=== PATIENT | female | born 1965 | race Caucasian/White ===

== ENCOUNTER → 2016-05-05 | Outpatient (CLI) | payer OTHER ==
--- NOTE | 2016-05-05 17:40 | XR ---
EXAMINATION TYPE: XR Hip Complete RT DATE OF EXAM: 05/05/2016 5:26 PM COMPARISON: NONE HISTORY: Hip pain TECHNIQUE: 2 views FINDINGS: I see no fracture nor dislocation. Hip joint space is normal. Sacroiliac joint is normal. IMPRESSION: Negative right hip exam.
--- NOTE | 2016-05-05 17:41 | XR ---
EXAMINATION TYPE: XR lumbar spine 2 or 3V DATE OF EXAM: 05/05/2016 5:26 PM COMPARISON: NONE HISTORY: Back pain TECHNIQUE: 3 views FINDINGS: Lumbar vertebra have normal alignment. Disc spaces are fairly normal. Posterior elements ar e intact. Sacroiliac joints are not included on this exam. IMPRESSION: Negative lumbar spine exam. No fracture.
== END | disposition home or self-care (01) ==
LOC: RADXRMAIN 16:53
PROVIDERS: ATTEND Internal Medicine
DX: M54.5 Low back pain (principal); M25.551 Pain in right hip
CPT/HCPCS: 72100; 73502

== ENCOUNTER → 2016-05-10 | Outpatient (CLI) | payer OTHER ==
--- NOTE | 2016-05-11 11:00 | MM ---
Reason for exam: screening (asymptomatic). Last mammogram was performed 1 year ago. History: Family history of breast cancer in maternal aunt at age 42. Physical Findings: A clinical breast exam by your physician is recommended on an annual basis and results should be correlated with mammographic findings. MG 3D Screening Mammo W/Cad Bilateral CC and MLO view(s) were taken. Prior study comparison: May 13, 2015, bilateral MG 3d diag mammo w/cad PANCHO. There are scattered fibroglandular densities. Asymmetric breast tissue on MLO, 12-13cm from nipple. ASSESSMENT: Incomplete: need additional imaging evaluation, BI-RAD 0 RECOMMENDATION: Special view mammogram of the right breast. If lesion persists on supplemental views, image directed ultrasound is recommended. [facility] will attempt to contact patient to return for supplemental views and ultrasound if indicated.
== END | disposition home or self-care (01) ==
LOC: RADMAMWWP 13:09
PROVIDERS: ATTEND Internal Medicine
DX: Z12.31 Encounter for screening mammogram for malignant neoplasm of breast (principal); R92.2 Inconclusive mammogram
CPT/HCPCS: 77052; 77063; G0202

== ENCOUNTER → 2016-05-14 | Outpatient (CLI) | payer OTHER ==
--- NOTE | 2016-05-14 11:01 | MM ---
Reason for exam: additional evaluation requested from abnormal screening. Last mammogram was performed less than 1 month ago. History: Family history of breast cancer in maternal aunt at age 42. Physical Findings: Nurse Summary: 1cm nodule in the right breast at axilla (nurse mm). MG 3D Work Up W/Cad RT ML, spot compression MLO, and spot compression XCCL view(s) were taken of the right breast. Prior study comparison: May 10, 2016, bilateral MG 3d screening mammo w/cad. May 13, 2015, bilateral MG 3d diag mammo w/cad PANCHO. Density far upper outer quadrant in the right breast persists. Ultrasound is recommended. These results were verbally communicated with the patient and result sheet given to the patient on 05/14/16. ASSESSMENT: Incomplete: need additional imaging evaluation, BI-RAD 0 RECOMMENDATION: Ultrasound of the right breast.
--- NOTE | 2016-05-14 11:03 | USB ---
Reason for exam: additional evaluation requested from abnormal screening. History: Family history of breast cancer in maternal aunt at age 42. US Breast Workup Limited RT Right breast ultrasound demonstrates a 11 x 4 x 9mm solid lesion with vascularity at BB at axilla tail. These results were verbally communicated with the patient and result sheet given to the patient on 05/14/16. ASSESSMENT: Suspicious, BI-RAD 4 RECOMMENDATION: Ultrasound core biopsy of the right breast. Called Dr. Banks with mammographic findings and has scheduled an appointment for the patient for 06/02/16 at 3:[address] Pearl. Biopsy scheduled for 05/24/16 at 8:00 PRELIMINARY REPORT CALLED AND FAXED TO DR. PEARL ON 05/14/16 AT 300/TP.
== END ==
LOC: RADMAMWWP 08:55
PROVIDERS: ATTEND Internal Medicine
DX: R92.8 Other abnormal and inconclusive findings on diagnostic imaging of breast (principal)
CPT/HCPCS: 76642; G0206; G0279

== ENCOUNTER → 2016-05-24 | Day surgery (SDC) | payer OTHER ==
[~2016-05-24] MED LIST: BACITRACIN OINT 1 EACH PACKET TOPICAL ONE; LIDOCAINE 1% INJ 10MG/ML (20 ML MDV) ONE; SODIUM BICARB 4% 5 ML VIAL (0.48 MEQ/ML) ONE
--- NOTE | 2016-05-24 08:48 | USB ---
EXAMINATION TYPE: US biopsy breast VAD RT DATE OF EXAM: 05/24/2016 8:40 AM CLINICAL HISTORY: Abn Mammogram R92.8. Palpable abnormality, abnormal ultrasound TECHNIQUE: Ultrasound guided core biopsy of right breast axillary region. COMPARISON: Ultrasound 05/14/2016 FINDINGS: The procedure of ultrasound guided core biopsy was explained to the patient. Benefits, alternatives, and risks were discussed. An informed consent was then obtained. The patient was placed in supine positioning for imaging and for the procedure. The overlying skin was prepped and draped in usual sterile fashion. Lidocaine buffered with bicarbonate was used as anesthetic into the skin and subcutaneous tissue up to area of concern in the right breast. A juan jose was made with surgical scalpel. Under ultrasound guidance, a 12-gauge vacuum assisted biopsy gun device was used to obtain 3 core samples. This removed the abnormality and was into the subcutaneous tissues. Additional sampling was not performed. Following this, a biopsy clip was left in the biopsy cavity. Physician ordered post procedure mammogram was performed. The patient tolerated the procedure well without any immediate complication. The patient was kept in the radiology department for short stay after the procedure and then discharged home in stable condition. IMPRESSION: 1. Successful, uncomplicated ultrasound guided core biopsy of area of concern in the right breast, full pathology results to follow. Recommendations: 1. Recommendations are pending pathology results. Pathology Results: Benign BREAST, RIGHT, CORE BIOPSY: BENIGN FIBROADIPOSE TISSUE WITH FIBROSIS, SEE NOTE. Recommendation Follow up ultrasound of the right breast in 6 months. OSKAR
--- NOTE | 2016-05-24 10:58 | MM ---
Post procedure mammogram Post procedure mammogram is performed with a medial lateral view and exaggerated lateral craniocaudal view. The ultrasound core clip is within the upper outer aspect right axillary region. IMPRESSIONS: 1. Post procedure mammogram for clip placement. Recommendations: 1. Follow-up right breast mammogram 6 months.
== END ==
LOC: RADUSWWP 07:23
PROVIDERS: ATTEND Surgery
DX: N60.31 Fibrosclerosis of right breast (principal); Z80.3 Family history of malignant neoplasm of breast
CPT/HCPCS: 88305; 19083; G0206; A4648; J2001

== ENCOUNTER → 2016-11-22 | Outpatient (CLI) | payer OTHER ==
--- NOTE | 2016-11-22 09:11 | MM ---
Reason for exam: follow-up at short interval from prior study. Last mammogram was performed 6 months ago. History: Family history of breast cancer in maternal aunt at age 42. Benign US biopsy breast VAD RT of the right breast, May 24, 2016. Took hormonal contraceptives for 7 years. Physical Findings: Nurse did not find any significant physical abnormalities on exam. MG Diagnostic Mammo RT w CAD CC, MLO, LM, and XCCL view(s) were taken of the right breast. Prior study comparison: May 24, 2016, right breast MG diagnostic mammo RT wo CAD. May 14, 2016, right breast MG 3d work up w/cad RT. There are scattered fibroglandular densities. There is no discrete abnormality. No significant new findings when compared with previous films. These results were verbally communicated with the patient and result sheet given to the patient on 11/22/16. ASSESSMENT: Benign, BI-RAD 2 RECOMMENDATION: Return to routine screening mammogram schedule for both breasts. Back on schedule for May 2017.
== END | disposition home or self-care (01) ==
LOC: RADMAMWWP 08:02
PROVIDERS: ATTEND Surgery
DX: R92.8 Other abnormal and inconclusive findings on diagnostic imaging of breast (principal)

== ENCOUNTER → 2017-08-26 | Outpatient (CLI) | payer OTHER ==
--- NOTE | 2017-08-29 07:52 | MM ---
Reason for exam: additional evaluation requested from abnormal screening. Last mammogram was performed less than 1 month ago. History: Patient is postmenopausal. Family history of breast cancer in maternal aunt at age 42. Benign US biopsy breast VAD RT of the right breast, May 24, 2016. Took hormonal contraceptives for 7 years. Physical Findings: Nurse did not find any significant physical abnormalities on exam. MG 3D Work Up W/Cad LT Spot compression CC and LM view(s) were taken of the left breast. Prior study comparison: August 16, 2017, bilateral MG 3d screening mammo w/cad. November 22, 2016, right breast MG diagnostic mammo RT w CAD. There are scattered fibroglandular densities. No distinct lesions persist on additional views. These results were verbally communicated with the patient and result sheet given to the patient on 08/26/17. ASSESSMENT: Negative, BI-RAD 1 RECOMMENDATION: Return to routine screening mammogram schedule for both breasts.
== END | disposition home or self-care (01) ==
LOC: RADMAMWWP 13:24
PROVIDERS: ATTEND Family Medicine
DX: R92.8 Other abnormal and inconclusive findings on diagnostic imaging of breast (principal)
CPT/HCPCS: 77065; G0279

== ENCOUNTER → 2020-04-16 | Outpatient (CLI) | payer OTHER ==
--- NOTE | 2020-04-17 11:04 | MM ---
Reason for exam: screening (asymptomatic). Last mammogram was performed 2 years and 8 months ago. History: Patient is postmenopausal. Family history of breast cancer in maternal aunt at age 42. Benign US biopsy breast VAD RT of the right breast, May 24, 2016. Took hormonal contraceptives for 7 years. Physical Findings: A clinical breast exam by your physician is recommended on an annual basis and results should be correlated with mammographic findings. MG 3D Screening Mammo W/Cad Bilateral CC and MLO view(s) were taken. Prior study comparison: August 26, 2017, left breast MG 3d work up w/cad LT. August 16, 2017, bilateral MG 3d screening mammo w/cad. There are scattered fibroglandular densities. No significant changes when compared with prior studies. ASSESSMENT: Benign, BI-RAD 2 RECOMMENDATION: Routine screening mammogram of both breasts in 1 year.
== END | disposition home or self-care (01) ==
LOC: RADMAMWWP 13:51
PROVIDERS: ATTEND Family Medicine
DX: Z12.31 Encounter for screening mammogram for malignant neoplasm of breast (principal); Z80.3 Family history of malignant neoplasm of breast
CPT/HCPCS: 77063; 77067

== ENCOUNTER 2023-10-14 12:53 | Emergency (ER) | payer BC, OTHER ==
[2023-10-14 13:06] VITALS: RESP 20
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
[2023-10-14] MEDS: LIDOCAINE 1% INJ 10MG/ML (20 ML MDV) SQ ONE (15:30)
[2023-10-14] MEDS: DIPH,PERTUS(ACELL)TETVAC-LF 0.5 ML VIAL IM ONE (15:31)
[2023-10-14 16:36] VITALS: BP 98/62; PULSE 78; TEMP 98
== END 2023-10-14 16:36 | disposition home or self-care (01) ==
LOC: EC 12:53
DX: S61.012A Laceration without foreign body of left thumb without damage to nail, initial encounter (principal); Z23 Encounter for immunization; X58.XXXA Exposure to other specified factors, initial encounter
CPT/HCPCS: 90715; 99282; 12002; 90471; J2001